=== PATIENT | female | born 1990 | race American Indian/Alaskan Native ===

== ENCOUNTER 2020-04-10 19:36 | Emergency (ER) | payer SELFPAY ==
[2020-04-10 20:03] VITALS: BP 123/77
== END 2020-04-10 21:40 | disposition left against medical advice (07) ==
LOC: ED 19:36
DX: R06.02 Shortness of breath (principal); Z53.21 Procedure and treatment not carried out due to patient leaving prior to being seen by health care provider
CPT/HCPCS: 93005